=== PATIENT | male | born 1960 | race Asian ===

== ENCOUNTER 2024-02-15 13:15 | Inpatient (IN) | payer OTHER, SELFPAY ==
[2024-02-15] VITALS (11 sets, daily range): BP systolic 108–151; BP diastolic 62–91; BMI 23.1; BMI 22.5
[2024-02-15 11:37] LABS: Hematocrit 23.9 % (39.0-52.0); Hemoglobin 8.5 g/dL (13.0-18.0); Mean Corp Hgb Conc. 35.6 g/dL (33.0-37.0); Mean Corpuscular Hgb 32.3 pg (27.0-31.0); Mean Corpuscular Volume 90.9 fL (80.0-94.0); Red Blood Cell Count 2.63 10^6/uL (4.70-6.10); Red Cell Dist. Width 12.9 % (11.5-14.5); White Blood Cell Count 14.4 10^3/uL (4.8-10.8)
[2024-02-15 11:38] LABS: % Basophils 0.1 % (0-2); % Eosinophils 0.1 % (0-6); % Immature Granulocytes 0.7 % (0-0.5); % Monocytes 4.6 % (1.7-9.3); % Neutrophils 85.5 % (42.2-75.2); Mean Platelet Volume 11.9 fL (7.4-10.4); Platelet Count 157 10^3/uL (130-400)
[2024-02-15 11:39] LABS: Absolute Neutrophils 12.3 10^3/uL (1.4-6.5)
[2024-02-15 11:40] LABS: Absolute Immature Granulocytes 0.1 10^3/uL (0-0.05); Absolute Lymphocytes 1.3 10^3/uL (1.2-3.4); Absolute Monocytes 0.7 10^3/uL (0.1-0.6); Nucleated Red Blood Cells % 0 % (-)
[2024-02-15 11:42] LABS: ALT (SGPT) 40 U/L (0-50); AST (SGOT) 23 U/L (17-59); Albumin 3.6 g/dl (3.5-5.0); Alkaline Phosphatase 71 U/L (38-126); Blood Urea Nitrogen 49 mg/dl (9-20); Calcium 8.4 mg/dl (8.4-10.2); Carbon Dioxide 21 mmol/L (22-30); Chloride 108 mmol/L (98-107); Glucose 144 mg/dl (70-99); Lipase 124 U/L (23-300); Potassium 3.5 mmol/L (3.5-5.1); Sodium 137 mmol/L (135-145); Total Bilirubin 0.5 mg/dl (0.2-1.3); Total Protein 5.8 g/dl (6.3-8.2); eGFR > 60.00
--- NOTE | 2024-02-15 12:00 | ED.GENMED ---
History of Present Illness
General
Chief Complaint: Rectal Bleeding
Source: patient and family
Exam Limitations: other (Kyrgyz speaking)
Time Seen by Provider: 02/15/24 11:37
History of Present Illness
History of Present Illness:
63-year-old male with a history of a stroke on a baby aspirin, comes from [place] and is just visiting for the past month and is due to go back in a week presents for black stool yesterday x 1 and then x 3 today. Patient says it was not overly
large-volume but softer today and he is felt short of breath with exertion. He has no shortness of breath at rest.
He has no cardiac history. Patient is not having any chest discomfort. He denies any abdominal pain. He has never had any GI bleeding before. He formally drank alcohol but stopped 2 years ago. He is not a smoker. He does not take ibuprofen.
Patient has never had a transfusion. His daughter was able to review some blood work from October which did not include a hemoglobin and hematocrit it appears but there was RBCs and his RBCs then were 4.6.
Past History
Past History
ED Past Medical History: CVA, HTN and Hypercholesterolemia
Social History
Tobacco: Former smoker
Alcohol: Former
Review of Systems
Review of Systems
Allergies reviewed?: Yes
All Other Systems: Not applicable
Phy Exam
Physical Exam
Physical Exam:
GENERAL: Alert , in no apparent distress pale
EYE: pupils equal and reactive
NECK: Supple
ENT: o/p clr, mmm.
CARDIAC: Tachycardic low 100s, no murmur
LUNGS: Clear breath sounds bilaterally, no acute respiratory distress, no wheezes/rales/rhonchi
ABDOMEN: Soft, nontender, no r/g, no cvat, normal bowel sounds
Heme positive black stool in the vault
NEUROLOGICAL: Alert and oriented, no focal neuro deficits
SKIN: Warm and dry, skin intact., Pale
MUSCULOSKELETAL: No edema, well perfused.
PSYCH: Normal and appropriate interaction.
Course
Orders/Labs/Results
Orders:
Orders
02/15/24 11:19
Electrocardiogram (*1) Urgent
Reason for Study: Tachycardia
EKG- Treatment ONCE
02/15/24 11:20
Type+Screen Urgent
Complete Blood Count/With Diff Urgent
Comprehensive Metabolic Panel Urgent
Lipase Urgent
02/15/24 11:59
0.9% Sodium Chloride 500 ml [Nss] 500 ml IV BOLUS
02/15/24 12:00
Troponin I Urgent
Pantoprazole 80 mg/100 ml Nss [Protonix] 80 mg in 100 ml IV Q10H
Abnormal Lab Results
02/15/24
11:20
WBC 14.4 H 10^3/uL
(4.8-10.8)
RBC 2.63 L 10^6/uL
(4.70-6.10)
Hgb 8.5 L g/dL
(13.0-18.0)
Hct 23.9 L %
(39.0-52.0)
MCH 32.3 H pg
(27.0-31.0)
MPV 11.9 H fL
(7.4-10.4)
Abs Immat Gran (auto) 0.1 H 10^3/uL
(0-0.05)
Absolute Neuts (auto) 12.3 H 10^3/uL
(1.4-6.5)
Absolute Monos (auto) 0.7 H 10^3/uL
(0.1-0.6)
Immature Gran % 0.7 H %
(0-0.5)
Neutrophils % 85.5 H %
(42.2-75.2)
Lymphocytes % 9.0 L %
(20.5-51.1)
Chloride 108 H mmol/L
(98-107)
Carbon Dioxide 21 L mmol/L
(22-30)
BUN 49 H mg/dl
(9-20)
Glucose 144 H mg/dl
(70-99)
Total Protein 5.8 L g/dl
(6.3-8.2)
02/15/24 11:20
02/15/24 11:20
Vital Signs
Initial and Last Documented VS:
Initial Vital Signs
Temp Pulse Resp BP Pulse Ox
98.3 F 120 16 108/74 100
02/15/24 11:02 02/15/24 11:02 02/15/24 11:02 02/15/24 11:02 02/15/24 11:02
Last Documented Vital Signs
Temp Pulse Resp BP Pulse Ox
98.3 F 100 17 151/86 100
02/15/24 11:02 02/15/24 11:30 02/15/24 11:30 02/15/24 11:21 02/15/24 11:30
MDM/Problems Addressed
Differential Diagnosis Includes:
GI bleed, symptomatic anemia, NSTEMI
MDM/Problems Addressed:
63-year-old male with a history of a stroke of baby aspirin presents for painless rectal bleeding for the last 2 days. There were 1 or 2 episodes yesterday of dark black stool and today 3 episodes so far. There were not large volume but semiformed
stool. He is not having any abdominal pain. He has no upper GI bleeding. He formally drank alcohol but not heavily and stopped 2 years ago. It appears his dose of aspirin from [employer] [employer] [facility] is 100 mg daily.
He is not on any anticoagulation. He has never been anemic that he knows of. He has blood work from in [place] from 4 months ago showing a total RBCs of 4.6. They do not appear to have a hemoglobin or and a hematocrit on that test.
On exam the patient is mildly tachycardic, pale, normotensive, in no distress, with black stool in the rectal vault heme positive
He does have some nonspecific ST changes of his EKG and exertional symptoms so we will check a troponin
His RBCs today are in the twos reflective of some blood loss. Hemoglobin of 8 today
Will not transfuse at this time but admit for IV fluids, Protonix, GI consult, observation
*Critical Care Note
Total Time (30-74mins, 75-104mins- exclusive of procedures): Not Applicable
ED Attending Note
-
Portions of this chart may have been created with voice recognition software.� Occasional wrong word or��sound alike� substitutions may have occurred due to the inherent limitations of voice recognition software.
Discharge Plan
Departure
Patient Disposition: Admit
Date of Disposition: 02/15/24
Time of Disposition: 12:05
Admit to: Telemetry
Presentation/result/management discussed w/ accepting MD/DO: Hospitalist
Condition: Fair
Covid-19: Not Applicable
Discharge Problem:
Acute GI bleeding
Prescriptions:
No Action
aspirin 81 mg Tablet,Delayed Release (Dr/Ec)
81 mg PO DAILY
amlodipine 10 mg Tablet
10 mg PO DAILY
folic acid 0.8 mg Capsule
0.8 mg PO DAILY
cholecalciferol (vitamin D3) [Vitamin D3] 25 mcg (1,000 unit) Tablet
25 mcg PO DAILY
omega 6-lgm-bra-fish oil [Fish Oil] 1,000 mg (120 mg-180 mg) Capsule
2 cap PO DAILY
Referrals:
NONE,* [Family Provider] -
Interventions
Interventions:
*Risk Screen - Suicide Last Done: 02/15/24 11:43
*General Assessment Last Done: 02/15/24 11:43
*Neglect/Abuse Screening Last Done: 02/15/24 11:43
SA-Qsidmk-Cnpiyoopom Assessment Last Done: 02/15/24 11:43
ED- Cardiac Assessment Last Done: 02/15/24 11:43
ED- Pulmonary Assessment Last Done: 02/15/24 11:43
Discharge Date and Time
Print Language: SLOVAK
[2024-02-15] MEDS: PROTONIX 100 IV ×2 (12:13→22:45)
[2024-02-15] MEDS: NSS 500 IV (12:13)
[2024-02-15 12:49] LABS: Troponin I < 0.012 ng/ml
--- NOTE | 2024-02-15 12:52 | HPS.HSE ---
Family Physician
-
Family Physician: * NONE
Chief Complaint
-
Black stools for 2 days during
History of Present Illness
63 years old male presented to the emergency room with history of dizziness and black stools. History came from the patient, his family at bedside. Patient reported that he did not have abdominal pain or nausea. He started to have a black tarry
stools 2-3 times a day since yesterday. No abdominal pain. He takes 100 mg of aspirin for history of stroke. He had similar episode before and had workup in [place].. No reports available for me.
Patient is visiting the country from [place]. He is due to go back to [place] in the week. No history of diarrhea. No history of chronic anemia. Hemoglobin upon admission was 8.5 with leukocytosis. No abdominal tenderness on examination.
Creatinine 0.9, elevated BUN
Medical History
Past Medical History
Past Medical History: Reports CVA, HTN and Other
Past Surgical History: Reports Other (No recent major surgery)
Social History
Tobacco: Non-smoker
Alcohol: Former
Drug: None
Employment: Retired
Family History
Family History: Other (Family denied history of gastrointestinal diseases)
Allergies / Home Medications
Allergies reflects when Allergies were last updated in [facility].
Home Medications with original date entered in [facility]
Allergy/Medication List:
Allergies
Allergy/AdvReac Type Severity Reaction Status Date / Time
No Known Allergies Allergy Verified 02/15/24 11:01
Home Medications
amlodipine 10 mg tablet 10 mg PO DAILY 02/15/24
aspirin 81 mg tablet,delayed release 81 mg PO DAILY 02/15/24
cholecalciferol (vitamin D3) 25 mcg (1,000 unit) tablet (Vitamin D3) 25 mcg PO DAILY 02/15/24
folic acid 0.8 mg capsule 0.8 mg PO DAILY 02/15/24
omega 8-yva-fxx-fish oil 1,000 mg (120 mg-180 mg) capsule (Fish Oil) 2 cap PO DAILY 02/15/24
Review of Systems
-
History Source: Patient
A 12 point ROS was completed and negative except as noted: Yes
Constitutional: Denies Fever
EENT: Denies Sore Throat
Respiratory: Denies Cough
Cardiac: Denies Chest Pain
Abdomen/GI: Reports Black Stools; Denies Abdominal Pain
: Denies Dysuria or Frequency
Musculoskeletal: Denies Joint Pain or Joint Swelling
Skin: Denies Rash
Neurological: Denies Numbness
Endocrine: Denies Temp Intolerance
Hematologic/Lymphatic: Denies Bruising
Psych: Denies Panic Disorder
Physical Exam
Vital Signs
Vital Signs
Temp Pulse Resp BP Pulse Ox
98.3 F 100 17 151/86 100
02/15/24 11:02 02/15/24 11:30 02/15/24 11:30 02/15/24 11:21 02/15/24 11:30
Physical Exam
General: Well Nourished, No Apparent Distress and Comfortable
HEENT: Anicteric and Moist mucous membranes
Respiratory: Clear
Cardiac: S1/S2 and Murmur
GI: Soft, Non Tender and Non Distended
Rectal: No Maroon Stools
Genito-urinary: No costovertebral tender
Musculoskeletal: No Clubbing, No Cyanosis and No Edema
Neuro: AO x 3; No Slurred Speech, Facial Droop, Tremors or Sedated
Psych: Calm and Intact Judgment/Insight
Laboratory Results
-
02/15/24 11:20
02/15/24 11:20
Laboratory Results
Total Bilirubin 0.5 mg/dl (0.2-1.3) 02/15/24 11:20
AST 23 U/L (17-59) 02/15/24 11:20
ALT 40 U/L (0-50) 02/15/24 11:20
Alkaline Phosphatase 71 U/L (38-126) 02/15/24 11:20
Troponin I < 0.012 ng/ml 02/15/24 12:14
Lipase 124 U/L (23-300) 02/15/24 11:20
Impression/Plan
-
63 years old male presented with black stool
#Acute blood loss anemia due to GI bleeding. Patient presented with dizziness.
Patient denies abdominal pain, nausea or vomiting. Started to have black stools for 2 days. History of aspirin intake but no history of nonsteroidal anti-inflammatory medications and intake. Reports similar episode in the past but no clear
history if he had an ulcer or not. He takes aspirin for history of stroke. No abdominal tenderness on examination.
Admit the patient to the hospital
Start the patient on Protonix drip.
No active rectal bleeding. Elevated BUN
Hold aspirin.
Check iron level.
Negative troponin
EKG, sinus tachycardia
Monitor hemoglobin level. Patient agrees to receive blood transfusion if needed.
Antinausea medication as needed although he denied nausea or vomiting.
Appreciate GI input
# Leukocytosis. Likely reactive. No fever. Will monitor.
# History of stroke. Holding aspirin until resolved GI issue.
#Primary hypertension. Continue amlodipine. No history of chest pain or headache.
# CODE STATUS, patient is full code.
Total time spent to see the patient, examine the patient on the floor, review data and lab results, discuss treatment plan with patient, family, GI doctor, ER doctor, nursing staff around 75 minutes.
--- NOTE | 2024-02-15 13:48 | CON.GI ---
Addendum entered and electronically signed by Laquita Neville MD 02/15/24 16:14:
I saw and examined the patient.
The HOTEL LOBBY CONCIERGE's note was reviewed and I agree with the note.
Comment: This is a 63-year-old Bahraini speaking gentleman with past medical history of CVA on aspirin, hypertension, Hyperlipidemia history obtained with help of his daughter at bedside who helped translate reported black stool since yesterday and
today he had 3 episodes associated with dizziness. Denies any use of NSAIDs. He had an endoscopy about 5 years ago when he was in [place] which per patient was normal no prior history of H. pylori or peptic ulcer disease. He never had a colonoscopy
in the past. His hemoglobin on admission was 8.5 with elevated BUN with normal Hb on recent labs a few months ago per daughter. He denies any abdominal pain, no nausea, vomiting or hematemesis, no history of dyspepsia or reflux symptoms. No
family history of gastric or colon cancer. He is visiting his daughter from [place] and is scheduled to leave next week.
Assessment and plan 3 episodes of melena today with dizziness on aspirin with acute blood loss anemia most likely has peptic ulcer disease less likely neoplasm or angioectasias. Will schedule him for an endoscopy today has been started on Protonix
drip. Discussed with daughter he will also need an eventual colonoscopy since he has never had one and if the endoscopy is negative will need colonoscopy as inpatient otherwise we can schedule colonoscopy as outpatient.
Addendum entered and electronically signed by VALERIE Mirza 02/15/24 14:27:
will add iron studies, B12, folate
Original Note:
Consultation
-
Date/Time Consultation Requested: 02/15/240
Date/Time Consultation Performed: 02/15/241329
Requesting Provider: Mari Baxter MD
Performing Provider: VALERIE Nair, Laquita Neville MD
Reason for Consultation: melena, anemia
Medical History
Chief Complaint / HPI
Chief Complaint: dizziness
History of Present Illness:
Pt is a 63yo presents with hx CVA on ASA, HTN, hypercholesterolemia with noted black stools. In ER noted with black heme + stool and hbg 8.5 with normocytic anemia. Asked to evaluate. In reviewing with family states normal hbg in past. He has
black stool several months ago but then noted 3 black stools this am with dizziness. He has hx EGD with bad experience with no sedation but did not recall findings. He denies dysphagia, odynophagia, GERD, nausea, vomiting, abdominal pain, wt loss,
constipation or red stools. No hx colonoscopy in past. Pt speak luxembourgish and currently visiting til next week from [place].
Past Medical History
Past Medical History: CVA, HTN and Hypercholesterolemia
Social History
Tobacco: Non-Smoker
Alcohol: None
Drug: None
Personal:
Living: With Family (in [place] currently visit )
Employment: Retired
Family History
Family History: Other (no family hx colon Ca or polyps )
Allergies / Home Medications
Allergy/AdvReac Type Severity Reaction Status Date / Time
No Known Allergies Allergy Verified 02/15/24 11:01
�Medication �Instructions �Recorded
amlodipine 10 mg tablet 10 mg PO DAILY 02/15/24
aspirin 81 mg tablet,delayed 81 mg PO DAILY 02/15/24
release
cholecalciferol (vitamin D3) 25 25 mcg PO DAILY 02/15/24
mcg (1,000 unit) tablet (Vitamin
D3)
folic acid 0.8 mg capsule 0.8 mg PO DAILY 02/15/24
omega 1-zwa-xbj-fish oil 1,000 mg 2 cap PO DAILY 02/15/24
(120 mg-180 mg) capsule (Fish Oil)
Review of Systems
-
History Source: Patient and Family
Constitutional: Reports Fatigue
EENT: Reports No Symptoms
Respiratory: Reports No Symptoms
Cardiac: Reports No Symptoms
Abdomen/GI: Reports Diarrhea and Black Stools
: Reports No Symptoms
Musculoskeletal: Reports No Symptoms
Skin: Reports No Symptoms
Neurological: Reports Dizzy
Endocrine: Reports No Symptoms
Hematologic/Lymphatic: Reports Bleeding
Vital Signs
Temp Pulse Resp BP Pulse Ox
98.3 F 100 17 151/86 100
02/15/24 11:02 02/15/24 11:30 02/15/24 11:30 02/15/24 11:21 02/15/24 11:30
Physical Exam
Exam
General: Well Developed, Well Nourished and No Apparent Distress
HEENT: Normocephalic and Anicteric
Respiratory: Clear
Cardiac: Other (tachy )
GI: Soft, Non Tender and Non Distended
Rectal: Black (heme + in ER )
Musculoskeletal: No Clubbing and No Cyanosis
Skin: Warm and Dry
Neuro: Awake, Alert and AO x 3
Psych: Calm
Results
WBC 14.4 10^3/uL (4.8-10.8) H 02/15/24 11:20
Hgb 8.5 g/dL (13.0-18.0) L 02/15/24 11:20
Hct 23.9 % (39.0-52.0) L 02/15/24 11:20
MCV 90.9 fL (80.0-94.0) 02/15/24 11:20
Plt Count 157 10^3/uL (130-400) 02/15/24 11:20
Absolute Neuts (auto) 12.3 10^3/uL (1.4-6.5) H 02/15/24 11:20
Sodium 137 mmol/L (135-145) 02/15/24 11:20
Potassium 3.5 mmol/L (3.5-5.1) 02/15/24 11:20
Chloride 108 mmol/L (98-107) H 02/15/24 11:20
Carbon Dioxide 21 mmol/L (22-30) L 02/15/24 11:20
BUN 49 mg/dl (9-20) H 02/15/24 11:20
Creatinine 0.9 mg/dL (0.7-1.3) 02/15/24 11:20
Calcium 8.4 mg/dl (8.4-10.2) 02/15/24 11:20
Total Bilirubin 0.5 mg/dl (0.2-1.3) 02/15/24 11:20
AST 23 U/L (17-59) 02/15/24 11:20
ALT 40 U/L (0-50) 02/15/24 11:20
Alkaline Phosphatase 71 U/L (38-126) 02/15/24 11:20
Lipase 124 U/L (23-300) 02/15/24 11:20
Diagnostic Image Results:
Prior GI Procedures:
EGD: last few years ago in [place] did not recall any abnormal findings
Colonoscopy: none
Assessment / Plan
-
Pt is a 63yo presents with hx CVA on ASA, HTN, hypercholesterolemia with noted black stools. In ER noted with black heme + stool and hbg 8.5 with normocytic anemia and dizziness this am. . He has hx EGD with bad experience with no sedation but did
not recall findings. No hx colonoscopy in past. Pt speak lux[place]ish and currently visiting [facility] next week from [place]. Denies NSAID other than ASA.
-melena
-anemia
-CVA on ASA
other med problem:
-HTN
-hypercholesterolemia
PLAN:
etiology of melena related to PUD with hx ASA use, ectasia, mass vs other
plan for EGD today
NPO
PPI gtt
trend hbg
NSAID avoidance other than ASA with hx CVA
t/c colonoscopy with no prior screening- IP vs OP when returns to [place]
family updated
-
-
Thank you for consultation and allowing me to participate in the patient's care. Please call the front desk person GI physician during the after hours with any questions or concerns.
[2024-02-15] MEDS: PROTONIX IV 80 MG IV (13:53)
[2024-02-15] MEDS: NSS (PRESERVATIVE FREE) 20 ML IV (13:53)
[2024-02-15 14:25] LABS: Iron 120 ug/dl (49-181)
[2024-02-15 14:34] LABS: Percent Saturation 54 % (20-50); Total Iron Binding Capacity 220 ug/dl (261-462)
--- NOTE | 2024-02-15 16:07 | TRANSFER ---
Patient admitted into room 423 from ED, ambulated from stretcher to bed. AAOx3. Protonix gtt running at 8 mg/hr. Patient is Kiswahili-speaking, daughter at bedside speaks Portuguese. Patient denying any complaints at this time. Oriented pt and daughter
to room and plan of care. Call min within reach.
[2024-02-15 16:20] LABS: Ferritin 63.4 ng/ml (17.9-464.0)
[2024-02-15 16:32] LABS: Hepatitis C Antibody Negative (Negative)
[2024-02-15 16:51] LABS: Folate > 20.0 ng/ml (2.76-20); Vitamin B12 285 pg/ml (239-931)
--- NOTE | 2024-02-15 18:04 | TRANSFER ---
Patient received back in room after EGD, ambulating from stretcher to room. VSS, denying any pain or discomfort. Menu provided for clear liquid diet. Plan of care ongoing.
[2024-02-15] MEDS: D5/0.9% SODIUM CHLORIDE 1000 IV (18:21)
[2024-02-16] VITALS (13 sets, daily range): BP systolic 85–155; BP diastolic 53–76
--- NOTE | 2024-02-16 02:19 | PTCARENOTE ---
ax3- no bleeding . voids without difficulty- vitals wnl
[2024-02-16] MEDS: D5/0.9% SODIUM CHLORIDE 1000 IV (04:07)
[2024-02-16 07:30] LABS: ALT (SGPT) 43 U/L (0-50); AST (SGOT) 35 U/L (17-59); Albumin 2.7 g/dl (3.5-5.0); Alkaline Phosphatase 42 U/L (38-126); Blood Urea Nitrogen 21 mg/dl (9-20); Calcium 7.9 mg/dl (8.4-10.2); Carbon Dioxide 22 mmol/L (22-30); Chloride 114 mmol/L (98-107); Estimated Creatinine Clearance 91 ml/min; Glucose 129 mg/dl (70-99); Magnesium 2.2 mg/dl (1.6-2.3); Potassium 3.8 mmol/L (3.5-5.1); Sodium 138 mmol/L (135-145); Total Bilirubin 0.9 mg/dl (0.2-1.3); Total Protein 4.9 g/dl (6.3-8.2); eGFR > 60.00
[2024-02-16] MEDS: PROTONIX 100 IV ×2 (08:48→18:29)
[2024-02-16] MEDS: NORVASC 10 MG PO (09:11)
[2024-02-16 09:28] LABS: Hematocrit 18.3 % (39.0-52.0); Hemoglobin 6.3 g/dL (13.0-18.0); Mean Corp Hgb Conc. 34.4 g/dL (33.0-37.0); Mean Corpuscular Hgb 31.8 pg (27.0-31.0); Mean Corpuscular Volume 92.4 fL (80.0-94.0); Mean Platelet Volume 11.5 fL (7.4-10.4); Platelet Count 109 10^3/uL (130-400); Red Blood Cell Count 1.98 10^6/uL (4.70-6.10); Red Cell Dist. Width 13.3 % (11.5-14.5); White Blood Cell Count 5.1 10^3/uL (4.8-10.8)
--- NOTE | 2024-02-16 09:35 | W.PN.HOSP.TC ---
Today's Communication/Plan
-
Give blood transfusion
f/w GI recommendation
c/w PPI gtt
Assessment / Plan
Assessment / Plan
Encounter using audio translation
Physical Exam
General: Well Nourished, No Apparent Distress and Comfortable
HEENT: Anicteric and Moist mucous membranes
Respiratory: Clear
Cardiac: S1/S2 and Murmur
GI: Soft, Non Tender and Non Distended
Rectal: No Maroon Stools
Genito-urinary: No costovertebral tender
Musculoskeletal: No Clubbing, No Cyanosis and No Edema
Neuro: AO x 3; No Slurred Speech, Facial Droop, Tremors or Sedated
Psych: Calm and Intact Judgment/Insight
63 years old male presented with black stool
#Acute blood loss anemia due to upper GI bleeding. Patient presented with dizziness.
Patient denies abdominal pain, nausea or vomiting. Started to have black stools for 2 days. History of aspirin intake but no history of nonsteroidal anti-inflammatory medications and intake. Reports similar episode in the past but no clear
history if he had an ulcer or not. He takes aspirin for history of stroke. No abdominal tenderness on examination.
s/p upper EGD that showed Non-bleeding gastric ulcer with no stigmata of bleeding. Oozing duodenal ulcer with oozing hemorrhage, injected. Clip was placed. 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
c/w Protonix drip.
Normal iron level at 120.
Negative troponin
EKG, sinus tachycardia
Patient agrees to receive blood transfusion if needed.
Appreciate GI input
# Leukocytosis. Resolved. Likely reactive. No fever.
# History of stroke. Holding aspirin until resolved GI issue.
#Primary hypertension. Continue amlodipine. No history of chest pain or headache.
# CODE STATUS, patient is full code.
Total time spent to see the patient, examine the patient on the floor, review data and lab results, discuss treatment plan with patient, family nursing staff around 59 minutes.
Anticipated Discharge: 24 - 48 hours
Subjective/Interval History
-
Date of Service: February 16, 2024
No chest pain
No abd pain
Black stools twice this morning
Objective Data
-
Labs:
Laboratory Results
02/16/24 02/16/24
06:26 08:46
WBC Cancelled 5.1
Hgb Cancelled 6.3 L* D
Hct Cancelled 18.3 L*
Plt Count Cancelled 109 L D
Sodium 138
Potassium 3.8
Chloride 114 H
Carbon Dioxide 22
BUN 21 H
Creatinine 0.8
Glucose 129 H
Calcium 7.9 L
Total Bilirubin 0.9
AST 35
ALT 43
Alkaline Phosphatase 42
Vital Signs:
Vital Signs
Temp Pulse Resp BP Pulse Ox
97.4 F 101 18 155/76 99
02/16/24 07:00 02/16/24 09:11 02/16/24 07:00 02/16/24 09:11 02/16/24 07:00
I&O
02/15/24 02/16/24 02/17/24
06:59 06:59 06:59
Intake Total 240 / 240
Balance 240 / 240
--- NOTE | 2024-02-16 12:11 | W.PN.GI.CBS2 ---
Today's Communication / Plan
-
2 U PRBC
trend HB
PPI gtt
Assessment / Plan
-
Pt is a 63yo presents with hx CVA on ASA, HTN, hypercholesterolemia with noted black stools. In ER noted with black heme + stool and hbg 8.5 with normocytic anemia and dizziness this am. . He has hx EGD with bad experience with no sedation but did
not recall findings. No hx colonoscopy in past. Pt speak tajik and currently visiting til next week from [place]. Denies NSAID other than ASA.
-melena
-anemia
-CVA on ASA
other med problem:
-HTN
-hypercholesterolemia
PLAN:
Acute blood loss anemia with melena status post EGD 02/14 which revealed small hiatal hernia, nonbleeding gastric ulcer, duodenal diverticulum and oozing duodenal bulb ulcer status post epinephrine and clip placement.
Drop in hemoglobin today agree with 2 units of PRBC as ordered by Dr. Baxter
Continue to trend hemoglobin if drops further or active bleeding may need repeat endoscopy
H. pylori stool antigen- P
Continue PPI drip
Hold aspirin for now if no further bleeding could resume in 2 to 3 days
Avoid NSAIDs
continue clears
Subjective
Subjective
Date of Service: February 16, 2024
He had a small episode of melena earlier today. Hemoglobin dropped 8.5-6.3. no abdominal pain, no hematemesis, no dizziness or syncope
Objective
Data Reviewed
Laboratory Data:
Laboratory Results
02/16/24 06:26
Laboratory Results
Magnesium 2.2 mg/dl (1.6-2.3) 02/16/24 06:26
Total Bilirubin 0.9 mg/dl (0.2-1.3) 02/16/24 06:26
AST 35 U/L (17-59) 02/16/24 06:26
ALT 43 U/L (0-50) 02/16/24 06:26
Alkaline Phosphatase 42 U/L (38-126) 02/16/24 06:26
Lipase 124 U/L (23-300) 02/15/24 11:20
Vital Signs and I&O:
Vital Signs
Temp Pulse Resp BP Pulse Ox
97.4 F 101 18 155/76 100
02/16/24 07:00 02/16/24 09:11 02/16/24 07:00 02/16/24 09:11 02/16/24 08:33
I&O
02/15/24 02/16/24 02/17/24
06:59 06:59 06:59
Intake Total 240 / 240
Balance 240 / 240
Physical Exam
Physical Exam
Cardiology: Normal Sinus Rhythm
Pulmonary: Clear
GI: Soft, Non Distended and Normal Bowel Sounds
[2024-02-16 20:08] LABS: Hemoglobin 8.9 g/dL (13.0-18.0)
[2024-02-17 03:03] VITALS: BP 122/76
[2024-02-17] MEDS: PROTONIX 100 IV (04:36)
[2024-02-17 07:38] LABS: Hematocrit 24.9 % (39.0-52.0); Hemoglobin 8.7 g/dL (13.0-18.0); Mean Corp Hgb Conc. 34.9 g/dL (33.0-37.0); Mean Corpuscular Hgb 32.5 pg (27.0-31.0); Mean Corpuscular Volume 92.9 fL (80.0-94.0); Mean Platelet Volume 11.5 fL (7.4-10.4); Platelet Count 109 10^3/uL (130-400); Red Blood Cell Count 2.68 10^6/uL (4.70-6.10); Red Cell Dist. Width 13.7 % (11.5-14.5); White Blood Cell Count 4.4 10^3/uL (4.8-10.8)
[2024-02-17] MEDS: NORVASC 10 MG PO (07:38)
[2024-02-17 07:48] VITALS: BP 134/69
--- NOTE | 2024-02-17 09:34 | W.DCSUMMARY ---
Discharge Summary
Discharge Data
Date of Admission: 02/15/24
Date of Discharge: 02/17/24
-
Pending Results: No
Hospital Course
63 years old male presented with black stools. Patient did not have nausea, vomiting, abdominal pain. He was found to have hemoglobin 8.5 on admission. Patient was taking aspirin for history of stroke. He reported history of black stools 5
years ago in [place] and he had endoscopy but he did not have records. [place] from [place] and the plan was to go back to [place] within a few days. Patient was evaluated by gastrointestinal doctor. He did not have hypotension. He had
upper endoscopy that showed nonbleeding gastric ulcer with no stigmata of bleeding, oozing duodenal ulcer with oozing hemorrhage status post injection and clip application. Patient received intravenous Protonix drip for 48 hours. Repeat hemoglobin
after procedure showed hemoglobin around 6. Patient was given 2 units of blood transfusion. He verbalized understanding to potential side effects and complications of blood transfusion. Patient underwent endoscopy without complication. He
remained hemodynamically stable. He was started on diet and tolerated diet well. His hemoglobin was monitored and remained stable around 8. No further black stools in the hospital. Patient wanted to go home. He was advised to follow-up with his
GI doctor in [place]. Patient given complete and comprehensive instructions upon discharge using audio translation. All questions were answered. Patient was advised to follow-up with his doctor for screening colonoscopy and CAT scan study. Patient
was discharged in a stable condition.
Physical Exam
General: Well Nourished, No Apparent Distress and Comfortable
HEENT: Anicteric and Moist mucous membranes
Respiratory: Clear
Cardiac: S1/S2, no tachycardia, and Murmur
GI: Soft, Non Tender and Non Distended
Rectal: No Maroon Stools
Genito-urinary: No costovertebral tender
Musculoskeletal: No Clubbing, No Cyanosis and No Edema
Neuro: AO x 3; No Slurred Speech, Facial Droop, Tremors or Sedated
Psych: Calm and Intact Judgment/Insight
Total discharge time spent to see the patient, examine the patient on the floor, review data and lab results, discuss discharge plan with patient, nursing staff around 67 minutes.
Discharge Plan
-
Patient Disposition: Home (Routine Discharge)
Discharge Diagnosis/Procedures: -Acute blood loss anemia
Status post upper endoscopy that showed normal esophagus, small hiatal hernia, nonbleeding gastric ulcer with no stigmata of bleeding, oozing superficial duodenal ulcer with oozing hemorrhage (Terrance Class Ib) was found in the duodenal bulb. The
lesion was 10 mm in largest dimension. Area was successfully injected with 4 mL of a 0.1 mg/mL solution of epinephrine for hemostasis. For hemostasis, one hemostatic clip was successfully placed. Clip regrinder: [employer]. There was no
bleeding at the end of the procedure. Estimated blood loss was minimal. 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 The first portion of the duodenum and second portion of the duodenum were normal.
You received pantoprazole ( Protonix) drip for 48 hours. Stool for H. pylori antigen is pending at time of discharge.
He received 2 units of blood transfusion for hemoglobin of 6.3. Your hemoglobin at time of discharge was 8.7 after transfusion.
-Thrombocytopenia with platelet around 109
Follow-up with your primary care doctor and your low raw sugar cutter. You will need screening colonoscopy and CAT scan study of the abdomen & pelvis with contrast.
Continue taking Protonix twice a day for 2 months. Then daily. Resume taking aspirin 81 mg on February.
Take iron therapy to treat anemia for at least one month. Iron can cause black stool/ constipation.
Diet: As tolerated
Referrals:
Laquita Neville MD [Active] - (As needed)
NONE,* [Family Provider] -
Prescriptions:
New
pantoprazole 40 mg Tablet,Delayed Release (Dr/Ec)
40 mg PO BID Qty: 60 0RF
ferrous sulfate 325 mg (65 mg iron) tablet
325 mg PO DAILY Qty: 30 0RF
Continued
amlodipine 10 mg Tablet
10 mg PO DAILY
folic acid 0.8 mg Capsule
0.8 mg PO DAILY
cholecalciferol (vitamin D3) [Vitamin D3] 25 mcg (1,000 unit) Tablet
25 mcg PO DAILY
omega 7-ihm-oqn-fish oil [Fish Oil] 1,000 mg (120 mg-180 mg) Capsule
2 cap PO DAILY
Held
aspirin 81 mg Tablet,Delayed Release (Dr/Ec)
81 mg PO DAILY
Hold Instructions: Resume on 02/19/24.
Discharge Orders:
Discharge Patient (As Directed); Ordered 02/17/24
Ordered By: José Manuel Baxter
Discharge Date and Time
Discharge Date/Time: 02/17/24 13:00
Print Language: CYPRIOT
--- NOTE | 2024-02-17 10:49 | W.PN.GI.CBS2 ---
Today's Communication / Plan
-
advance diet
OK for DC
Assessment / Plan
-
Pt is a 63yo presents with hx CVA on ASA, HTN, hypercholesterolemia with noted black stools. In ER noted with black heme + stool and hbg 8.5 with normocytic anemia and dizziness this am. . He has hx EGD with bad experience with no sedation but did
not recall findings. No hx colonoscopy in past. Pt speak [place] and currently visiting [facility] next week from [place]. Denies NSAID other than ASA.
-melena
-anemia
-CVA on ASA
other med problem:
-HTN
-hypercholesterolemia
PLAN:
Acute blood loss anemia with melena status post EGD 02/14 which revealed small hiatal hernia, nonbleeding gastric ulcer, duodenal diverticulum and oozing duodenal bulb ulcer status post epinephrine and clip placement.
Hemoglobin responded to 2 units of packed red blood cells from 6.3 yesterday to 8.7 today with no further active bleeding noted
Thrombocytopenia most likely from transfusion
H. pylori stool antigen- P
Continue PPI bid X 8 weeks and then daily
Hold aspirin for now if no further bleeding could resume tomorrow
Avoid NSAIDs
diet advanced and if tolerates and no further bleeding OK to [facility]
Discussed with patient and family at bedside patient to leave to [place] on Sunday as long as patient has no further bleeding should be okay for travel
I also told patient to get a colonoscopy along with repeat endoscopy in 2 to 3 months to check for healing in [place]
Subjective
Subjective
Date of Service: February 17, 2024
He is doing well he had a small amount of black stool today, hemoglobin is improved after receiving 2 units of packed red blood cells from 6.3-8.7, denies abdominal pain, he is able to ambulate and feels well
Objective
Data Reviewed
Laboratory Data:
Laboratory Results
02/17/24 07:04
02/16/24 06:26
Laboratory Results
Magnesium 2.2 mg/dl (1.6-2.3) 02/16/24 06:26
Total Bilirubin 0.9 mg/dl (0.2-1.3) 02/16/24 06:26
AST 35 U/L (17-59) 02/16/24 06:26
ALT 43 U/L (0-50) 02/16/24 06:26
Alkaline Phosphatase 42 U/L (38-126) 02/16/24 06:26
Lipase 124 U/L (23-300) 02/15/24 11:20
Vital Signs and I&O:
Vital Signs
Temp Pulse Resp BP Pulse Ox
98.3 F 71 16 134/69 98
02/17/24 07:48 02/17/24 07:48 02/17/24 07:48 02/17/24 07:48 02/17/24 07:48
I&O
02/16/24 02/17/24 02/18/24
06:59 06:59 06:59
Intake Total 240 / 240 2019
Balance 240 / 240 2019
Physical Exam
Physical Exam
Cardiology: Normal Sinus Rhythm
Pulmonary: Clear
GI: Soft, Non Distended, Non Tender and Normal Bowel Sounds
[2024-02-17 11:18] VITALS: BP 119/71
--- NOTE | 2024-02-17 11:30 | CM ---
Met with patient at the bedside briefly
Initial Assessment completed with patient's daughter, Radha Falk, via phone # [phone]
Pharmacy verified: [facility] @ [address] [place] [address]
Daughter reported that her father lives with his in [facility]; he is visiting with her for 5 weeks; daughter lives in a multilevel home; 3 steps to enter; 14 steps between floors; railing on stairs; powder room on 1st floor; 2nd floor bath
has tub w/shower
PLOF: daughter reports that her father is independent with ambulation, stairs and ADLs; drives; is retired
DME: none
No SNF or home health history
Transportation: daughter will provide ride home
Plan: discharge to daughter's home; no needs
== END 2024-02-17 13:00 | disposition home or self-care (01) | DRG 811 ==
LOC: 4 WEST ACU 13:15
PROVIDERS: Physician Assistant; ADMITTING PHYSICIAN Internal Medicine; CONSULT PHYSICIAN Internal Medicine Gastroenterology; EMERGENCY PHYSICIAN Emergency Medicine
PROC: 0W3P8ZZ Control Bleeding in Gastrointestinal Tract, Via Natural or Artificial Opening Endoscopic (ICD-10-PCS; 2024-02-15)
PROC: 3E0G8GC Introduction of Other Therapeutic Substance into Upper GI, Via Natural or Artificial Opening Endoscopic (ICD-10-PCS; 2024-02-15)
PROC: 30233N1 Transfusion of Nonautologous Red Blood Cells into Peripheral Vein, Percutaneous Approach (ICD-10-PCS; 2024-02-16)
DX: D62 Acute posthemorrhagic anemia (principal); K25.4 Chronic or unspecified gastric ulcer with hemorrhage; K26.4 Chronic or unspecified duodenal ulcer with hemorrhage; D69.6 Thrombocytopenia, unspecified; K44.9 Diaphragmatic hernia without obstruction or gangrene; K57.10 Diverticulosis of small intestine without perforation or abscess without bleeding; D72.829 Elevated white blood cell count, unspecified; E78.00 Pure hypercholesterolemia, unspecified; I10 Essential (primary) hypertension; Z87.891 Personal history of nicotine dependence; Z86.73 Personal history of transient ischemic attack (TIA), and cerebral infarction without residual deficits; Z79.82 Long term (current) use of aspirin
CPT/HCPCS: 80053; 82607; 82728; 82746; 83540; 83550; 83690; 83735; 84484; 85018; 85025; 85027; 86803; 86850; 86900; 86901; 86920; 93005; 96365; 96366; 99285; P9016